=== PATIENT | male | born 1955 | race Caucasian/White ===

== ENCOUNTER → 2020-09-10 10:56 | Outpatient (BNVA) | payer OTHER, SELFPAY | PROVIDERS: PCP Internal Medicine; Visit Provider Surgery ==

== ENCOUNTER 2020-09-23 13:56 | Outpatient (REF) | payer OTHER, SELFPAY ==
[2020-09-23 13:59] VITALS: BP 138/96; PULSE 84; RESP 16; TEMP 36.2; O2SAT 99
[2020-09-23 14:02] VITALS: BMI 20.7
[2020-09-23 15:25] VITALS: BP 137/80; PULSE 88; RESP 16; O2SAT 96
--- NOTE | 2020-09-23 15:46 | W.PM.OPN ---
Operative Note Operative Note Date of Service: 09/23/20 Narrative: Preop diagnosis: Multiple skin lesions, right axilla and right posterior thigh Postop diagnosis: Multiple skin lesions x6 on the right axilla, skin lesion on the right posterior thigh Procedure done: Excision of skin lesions x6 on the right axilla and excision of a skin lesion on the right posterior thigh under local anesthesia Surgeon: Yonis Connors MD Anesthesia: Local The patient is a 64-year-old male with multiple skin lesions in the right axilla and right posterior thigh. He wanted all of these removed in view of increasing size. He understood the technique of this procedure under local anesthesia as well as the risks, benefits, and alternatives. He was brought to the minor procedure room and placed in a reclining position with the right arm abducted to expose the the right axilla. There were multiple lesions, all soft, fleshy, well-defined, each 1 with a narrow base. There were about 6 of these lesions were seen, varying in size from about 1 cm to about 4 mm. I prep and drape this entire area. I used lidocaine 1% to infiltrate the base of each lesion. I then used a blade 15 to excise each lesion elliptically around the base the full-thickness of the skin part of subcutaneous layer. I closed each incision with full-thickness nylon 3 0 interrupted 2 sutures. Dressings were applied. He was then placed in prone position. The skin lesion on the posterior right thigh was seen. This was about a 2.5 cm long soft, fleshy, well-defined lesion with a narrow base. These area was prepped and draped as well. I also used lidocaine 1% to infiltrate the area. I made an elliptical incision around the base using blade 15 to include the full-thickness of the skin and part of subcutaneous layer. This entire lesion was excised and sent as specimen. I closed this incision with full-thickness nylon 3-0 interrupted sutures. Dressings were applied. He tolerated procedure well. There where no complications noted. Estimated blood loss about 2 cc. He was given wound care instructions. I will see him in the office for an about 2 weeks for removal sutures.
== END 2020-09-23 13:57 | disposition home or self-care (01) ==
LOC: HO.MS 13:56
PROVIDERS: PCP Internal Medicine; Visit Provider Surgery
PROC: (CPT 11400; principal; 2020-09-23 14:30)
DX: L82.1 Other seborrheic keratosis (principal); D23.71 Other benign neoplasm of skin of right lower limb, including hip
CPT/HCPCS: 11400 ×3; 11401 ×3; 11403; 88305

== ENCOUNTER → 2020-10-07 10:59 | Outpatient (BNVA) | payer OTHER, SELFPAY | PROVIDERS: PCP Internal Medicine; Visit Provider Surgery ==

== ENCOUNTER 2020-10-22 08:18 | Outpatient (REF) | payer OTHER, SELFPAY ==
[2020-10-22 10:17] LABS: MANUAL DIFF FLAG NO
[2020-10-22 10:28] LABS: Basophils Percent Auto 0.6 % (0-2); Eosinophils Absolute Auto 0.4 X10*3/uL (0.0-0.4); Eosinophils Percent Auto 5.2 % (0-4); Hematocrit 45.7 % (42-52); Hemoglobin 15.8 g/dl (14.0-18.0); Imm Gran Abs Auto 0.04 X10*3/uL (0.00-0.03); Imm Gran Pct Auto 0.6 % (0.0-0.4); Lymphocytes Absolute Auto 1.7 X10*3/uL (1.2-4.9); Lymphocytes Percent Auto 25.3 % (20-40); Mean Corpuscular HGB Conc 34.6 g/dl (31.0-36.0); Mean Corpuscular Hemoglobin 31.3 pg (27.0-33.0); Mean Corpuscular Volume 90.7 fL (80-98); Mean Platelet Volume 11.1 fL (9.4-12.4); Monocytes Absolute Auto 0.6 X10*3/uL (0.1-1.2); Monocytes Percent Auto 8.6 % (2-11); Neutrophils Absolute Auto 4.1 X10*3/uL (2.0-8.3); Neutrophils Percent Auto 59.7 % (45-73); Platelet Count 165 X10*3/uL (160-400); Red Blood Count 5.04 X10*6/uL (4.60-5.80); Red Cell Distribution Width 12.3 % (11.0-16.0); White Blood Count 6.9 X10*3/uL (4.8-10.8)
[2020-10-22 11:05] LABS: Glucose Urine UA NEG (NEG); Leukocyte Esterase Urine NEG (NEG); Nitrite Urine NEG (NEG); PH 5.5 (5.0-8.0); Specific Gravity - Urine >= 1.030 (1.005-1.025); Urine Blood NEG (NEG); Urine Ketones NEG (NEG); Urine Protein NEG (NEG-TRACE)
[2020-10-22 11:11] LABS: Appearance Urine CLEAR; Color Urine YELLOW
[2020-10-22 11:31] LABS: Prostate Specific Antigen Scr 1.48 ng/mL (<0.05-4.0)
[2020-10-22 11:36] LABS: Alanine Aminotransferase 31 U/L (0-40); Albumin Level 4.3 g/dL (3.5-5.0); Alkaline Phosphatase 54 U/L (39-117); Anion Gap 11 (12-20); Aspartate Amino Transferase 30 U/L (5-37); Blood Urea Nitrogen 19 mg/dL (9-16); Calcium 9.2 mg/dL (8.4-10.2); Carbon Dioxide 32 mmol/L (22-29); Chloride 103 mmol/L (96-108); Cholesterol 146 mg/dL; Estimated Glomerular Filt Rate > 60; Glucose Fasting 97 mg/dL (60-99); HDL Cholesterol 52 mg/dL; LDL Cholesterol Calculated 72 mg/dl; Potassium 3.8 mmol/L (3.3-5.1); Sodium 142 mmol/L (135-145); Total Protein 6.5 g/dL (6.5-8.0); Triglycerides 113 mg/dL
== END 2020-10-22 08:19 | disposition home or self-care (01) ==
LOC: HO.10HDL 08:18
PROVIDERS: Visit Provider Internal Medicine
DX: Z00.00 Encounter for general adult medical examination without abnormal findings (principal); Z12.5 Encounter for screening for malignant neoplasm of prostate
CPT/HCPCS: 36415; 80053; 80061; 81003; 84153; 85025

== ENCOUNTER 2021-05-25 11:19 | Outpatient (REF) | payer OTHER, SELFPAY ==
[2021-05-25 13:47] LABS: Basophils Absolute Auto 0.1 X10*3/uL (0.0-0.2); Basophils Percent Auto 0.7 % (0-2); Eosinophils Absolute Auto 0.3 X10*3/uL (0.0-0.4); Eosinophils Percent Auto 4.2 % (0-4); Hemoglobin 16.7 g/dl (14.0-18.0); Imm Gran Abs Auto 0.01 X10*3/uL (0.00-0.03); Imm Gran Pct Auto 0.1 % (0.0-0.4); Lymphocytes Absolute Auto 2.2 X10*3/uL (1.2-4.9); Lymphocytes Percent Auto 28.3 % (20-40); MANUAL DIFF FLAG NO; Mean Corpuscular HGB Conc 34.8 g/dl (31.0-36.0); Mean Corpuscular Hemoglobin 31.3 pg (27.0-33.0); Mean Corpuscular Volume 90.1 fL (80-98); Mean Platelet Volume 10.9 fL (9.4-12.4); Monocytes Absolute Auto 0.6 X10*3/uL (0.1-1.2); Monocytes Percent Auto 8.1 % (2-11); Neutrophils Absolute Auto 4.5 X10*3/uL (2.0-8.3); Neutrophils Percent Auto 58.6 % (45-73); Platelet Count 184 X10*3/uL (160-400); Red Blood Count 5.33 X10*6/uL (4.60-5.80); Red Cell Distribution Width 12.5 % (11.0-16.0); White Blood Count 7.7 X10*3/uL (4.8-10.8)
[2021-05-25 14:44] LABS: Alanine Aminotransferase 32 U/L (0-40); Albumin Level 4.4 g/dL (3.5-5.0); Alkaline Phosphatase 58 U/L (39-117); Anion Gap 14 (12-20); Aspartate Amino Transferase 31 U/L (5-37); Bilirubin Total 0.6 mg/dL (0.0-1.0); Blood Urea Nitrogen 11 mg/dL (9-16); Calcium 9.9 mg/dL (8.4-10.2); Carbon Dioxide 25 mmol/L (22-29); Chloride 105 mmol/L (96-108); Estimated Glomerular Filt Rate > 60; Glucose Random 102 mg/dL (60-115); Sodium 140 mmol/L (135-145); Total Protein 6.9 g/dL (6.5-8.0)
== END 2021-05-25 11:20 | disposition home or self-care (01) ==
LOC: HO.10HDL 11:19
PROVIDERS: Visit Provider Internal Medicine
DX: I10 Essential (primary) hypertension (principal); I48.91 Unspecified atrial fibrillation; K57.90 Diverticulosis of intestine, part unspecified, without perforation or abscess without bleeding
CPT/HCPCS: 36415; 80053; 85025